=== PATIENT | female | born 1990 | race Caucasian/White ===

== ENCOUNTER → 2017-09-04 | Outpatient (CLI) | payer OTHER ==
[~2017-09-04] MED LIST: CETI10TA10 PO; CHOL200010 PO; FLUT0.15 INH; NAPR-1161 PO; OLOP0.6S NAE; RABE20TA5 PO; RANI150T3 PO; SERT-234 PO
[2017-09-04 12:09] LABS: BASO % 0.2 %; BASO ABS # 0.01 K/uL (0-0.2); EOS ABS # 0.06 K/uL (0-0.5); HEMOGLOBIN 12.7 g/dL (12.0-16.0); IG# 0.01 K/uL (0.00-0.02); LYMPH % 30.3 %; LYMPH ABS # 1.78 K/uL (1.2-3.4); MEAN CELL VOLUME 90.9 fL (80-100); MEAN CORPUSCULAR HEMOGLOBIN 29.6 pg (25-34); MEAN CORPUSCULAR HGB CONC 32.6 g/dl (32-36); MEAN PLATELET VOLUME 9.8 fL (7.4-10.4); MONO % 6.5 %; MONO ABS # 0.38 K/uL (0.11-0.59); NEUT % 61.8 %; NEUT ABS # 3.63 K/uL (1.4-6.5); PLATELET COUNT 291 K/uL (130-400); RED CELL DISTRIBUTION WIDTH CV 12.9 % (11.5-14.5); RED CELL DISTRIBUTION WIDTH SD 42.5 fL (36.4-46.3); WHITE BLOOD COUNT 5.87 K/uL (4.8-10.8)
[2017-09-04 12:32] LABS: BLOOD UREA NITROGEN 17 mg/dl (7-18); CALCIUM 8.6 mg/dl (8.5-10.1); CARBON DIOXIDE 31 mmol/L (21-32); CREATININE 0.59 mg/dl (0.60-1.20); GLUCOSE 88 mg/dl (70-99); POTASSIUM 3.5 mmol/L (3.5-5.1); SODIUM 139 mmol/L (136-145)
[2017-09-08 06:14] LABS: MICROSOMAL AB <1 IU/ML (<9)
== END | disposition home or self-care (01) ==
LOC: C.LABPBG 08:44
PROVIDERS: ATTEND Family Medicine
DX: N91.5 Oligomenorrhea, unspecified (principal); R94.6 Abnormal results of thyroid function studies; D64.9 Anemia, unspecified; E88.81 Metabolic syndrome and other insulin resistance

== ENCOUNTER → 2017-12-09 | Outpatient (CLI) | payer OTHER | END | disposition home or self-care (01) | LOC: C.LABSPEC 10:42 | PROVIDERS: ATTEND Family Medicine | DX: R39.9 Unspecified symptoms and signs involving the genitourinary system (principal) ==

== ENCOUNTER 2017-12-26 10:21 | Emergency (ER) | payer OTHER, BC ==
[~2017-12-26] VITALS: Ht 165.1 cm; Wt 91.5 kg
[2017-12-26 10:28] VITALS: TEMP 37; Ht 165.1 cm; Wt 91.5 kg
[2017-12-26] MEDS ORDERED: OXYB5TAB PO (10:39)
[2017-12-26] MEDS ORDERED: BUPR150T5 PO (10:39)
[2017-12-26] MEDS ORDERED: MELO-83 PO (10:39)
[2017-12-26] MEDS ORDERED: METF500T5 PO (10:39)
[2017-12-26] MEDS ORDERED: FERR1TAB62 PO (10:39)
[2017-12-26] MEDS ORDERED: CRY28 PO (10:39)
--- NOTE | 2017-12-26 11:06 | DIAGNOSTIC IMAGING REPORT ---
RIGHT FOOT 3 VIEWS HISTORY: RIGHT, EVAL PAIN COMPARISON: None. FINDINGS: There is no fracture or dislocation. Soft tissues are unremarkable. No radiopaque foreign bodies. IMPRESSION: No fractures. Electronically signed by: Loyd Marroquin M.D. 12/26/2017 11:05 AM Dictated Date/Time: 12/26/2017 11:03 AM
--- NOTE | 2017-12-26 11:16 | EMERGENCY ROOM VISIT NOTE ---
ED Visit Note First contact with patient: 10:31 CHIEF COMPLAINT: Right foot pain since last evening HISTORY OF PRESENT INJURY: Patient is a 27-year-old female who presents emergency department for evaluation of right foot pain. She complains of pain in the dorsum of her foot it started after she took a small step last evening. She was wearing athletic sandals at the time, the ground was even, she did not roll or twist the foot at all. She states that she put partial pressure on the foot, she felt pain spread across the top of her foot. She applied ice when she got home that evening. She is able to bear weight by keeping the pressure on the outside of her foot. She rates her discomfort a 4/10. REVIEW OF SYSTEMS: Review of systems as per HPI. All other systems reviewed were negative. At least 6 systems reviewed. PMH: Electronic medical records are reviewed and summarized as above/below. See Problem List. SOCIAL HISTORY: The patient lives at home by herself. Denies tobacco or alcohol use. She is employed. PHYSICAL EXAM: Vital Signs: Reviewed Nurse's notes. GENERAL: Well-appearing 27- year-old female with flat affect in no acute distress. MUSCULOSKELETAL: Examination of the right foot and ankle region do not note any soft tissue swelling, no ecchymosis or outward signs of trauma. Ankle is nontender to palpation. She has primary tenderness over the second and third metatarsal, and in the webspace between the first and the second metatarsal. She is able to dorsiflex and plantarflex fully, but has pain with plantarflexion as well as eversion. Right foot is neurovascularly intact. The skin is intact. EMERGENCY DEPARTMENT COURSE: X-rays of the right foot were obtained and negative for acute fracture or bony abnormality. Conservative care measures were discussed. Patient was agreeable to a postoperative shoe. She declined crutches. She was encouraged to rest, ice and elevate the foot and follow-up with orthopedics if her symptoms are not improving. Differential diagnoses included fracture, sprain, dislocation, contusion, Lisfranc injury, insufficiency fracture, among others. Medication reconciliation: I attest that I have personally reviewed the patient' s current medication list. Blood pressure screening : Patient was found to have normal blood pressure on screening and does not require follow-up. RIGHT FOOT 3 VIEWS HISTORY: RIGHT, EVAL PAIN COMPARISON: None. FINDINGS: There is no fracture or dislocation. Soft tissues are unremarkable. No radiopaque foreign bodies. IMPRESSION: No fractures. Problem List Medical Problems: (1) Abdominal pain Status: Resolved (2) Anxiety State Nos Status: Chronic (3) Depression Status: Chronic (4) Diarrhea Status: Resolved (5) Gastro-Esophageal Reflux Disease Without Esophagitis Status: Chronic (6) Ovarian cyst, right Status: Resolved (7) PCOS (polycystic ovarian syndrome) Status: Chronic (8) Urinary tract infection Status: Resolved (9) Vomiting Status: Resolved Surgical Problems: (1) History of sinus surgery Status: Resolved (2) History of wisdom tooth extraction Status: Resolved Current/Historical Medications Scheduled Bupropion Hcl (Bupropion Hcl Xl), 1 TAB PO DAILY Cetirizine Hcl (Zyrtec), 10 MG PO QPM Cholecalciferol (Vitamin D), 1 CAP PO QAM Ethinyl Estradiol/Norgestrel (Cryselle-28), 1 TAB PO DAILY Ferrous Sulfate (Ferrous Sulfate), 1 TAB PO BID Fluticasone Propionate (Nasal) (Flonase Allergy Relief), 1 SPRAY INH QAM Meloxicam (Meloxicam), 1 TAB PO DAILY Metformin Hcl Er (Glucophage Er), 1,000 MG PO DAILY Oxybutynin Chloride (Oxybutynin Chloride Er), 1 TAB PO DAILY Rabeprazole Sodium (Aciphex), 20 MG PO BID Ranitidine Hcl (Zantac), 150 MG PO QPM Sertraline (Zoloft), 100 MG PO QPM Allergies Coded Allergies: No Known Allergies (Unverified , 12/26/17) Vital Signs Date Time Temp Pulse Resp B/P (MAP) Pulse Ox O2 Delivery O2 Flow Rate FiO2 12/26/17 11:40 88 18 118/74 99 12/26/17 10:28 37.0 99 20 126/86 94 Room Air Departure Information Impression Primary Impression: Right foot injury Referrals Shakila Causey DO (PCP) Patient Instructions [facility] Additional Instructions Ibuprofen(Motrin, Advil) may be used for fever or pain. Use 600mg every six hours as needed. Take with food. Avoid using more than 2400mg in a 24 hour period. Do not use 2400mg per day for more than three consecutive days without physician direction. Prolonged inappropriate use can lead to stomach upset or ulcers. This medication can be taken if you need to drive, work, or perform activities which may be dangerous when taking narcotic pain medication. (AND/OR) Acetaminophen(Tylenol) may be used for fever or pain. Use 1000mg every six hours as needed. Avoid using more than 3000mg in a 24 hour period. This medication can be taken if you need to drive, work, or perform activities which may be dangerous when taking narcotic pain medication. Ice compresses for 20 minutes at a time four times daily for 2-3 days. Use the postoperative shoe as instructed. Rest and elevate your injury. Continue current medications. Return to the ER immediately for any numbness, tingling, severe pain, extreme swelling in the extremity or as needed. Followup with your family doctor or orthopedic surgery if no improvement in 5-7 days.
[2017-12-26 11:40] VITALS: BP 118/74; PULSE 88; O2SAT 99
== END 2017-12-26 11:42 | disposition home or self-care (01) ==
LOC: C.EDB 10:22 → C.EDD 11:42
DX: S99.921A Unspecified injury of right foot, initial encounter (principal); X58.XXXA Exposure to other specified factors, initial encounter; F41.9 Anxiety disorder, unspecified; F32.9 Major depressive disorder, single episode, unspecified; K21.9 Gastro-esophageal reflux disease without esophagitis; E28.2 Polycystic ovarian syndrome; Z79.84 Long term (current) use of oral hypoglycemic drugs; Z79.899 Other long term (current) drug therapy